=== PATIENT | male | born 1960 | race Caucasian/White ===

== ENCOUNTER 2023-12-14 09:09 | Outpatient (AMB) | payer OTHER, SELFPAY ==
--- NOTE | 2023-12-14 09:12 | MHC.OFFVIS ---
Intake Visit Reasons: FHX:Prostate Ca/Hx Kidney Stones/PSA Intake Note: Patient is present for FHX: PROSTATE Ca/ Hx Kidney Stones/PSA Urology Medication:NONE Antibiotic Allergy:NONE Blood Thinner:NONE Cadastral Engineer Required: No Allergies No Known Allergies Allergy (Verified 12/14/23 09:13) HPI Comments Details: Andrei is a pleasant male. He is a patient of Dr. Alanis. He is seen for the following urologic conditions - nephrolithiasis - elevated PSA - lower urinary tract symptoms Nephrolithiasis Two prior attacks since 2021 Small stones 1-2 mm each time Discussed adequate fluid intake for 1600 cc urine production per day Dietary advice regarding foods to minimize or avoid Addition to vitamin B6 with 1 oz lemon juice daily Elevated PSA PSA variable Family history grandfather of prostate cancer PSA - 09/06 3.5 Lower urinary tract symptoms Progressive weakness of stream Trial finasteride Review of Systems Const Denies chills and Denies fever(s) Card Reports no additional complaints and Denies syncope Resp Denies cough GI Denies abdominal pain and Denies heartburn Reports as per HPI and Denies change in libido Neuro Denies syncope Psych Denies change in libido Endo Denies change in libido Physical Exam Const General: cooperative, healthy appearing, comfortable and no acute distress Orientation/consciousness: patient oriented x3 HEENT Face and sinus: Yes normal facial exam Mouth: moist mucous membranes Neck Neck: Yes normal visual inspection, Yes full ROM and Yes trachea midline Chest Chest palpation & inspection: normal inspection of the chest Resp Effort & Inspection: normal respiratory effort, able to speak in complete sentences and no respiratory distress GI Inspection: Yes normal to inspection Back/Spine/Pelvis Cervical Spine: normal cervical lordosis Thoracic/Lumbar Spine: thoracic and lumbar spine normal to inspection Skin General skin exam: no rashes or lesions noted Neuro General: patient oriented x3, gait normal, tone normal and moves all extremities Extrem General: Yes normal to inspection and Yes capillary refill normal Results AMB Urinalysis, Automated UA Leukoctes 0 Hilda/uL Last Edit by MIGUEL Canas on 12/14/23 09:23 UA Nitrite Negative Last Edit by MIGUEL Canas on 12/14/23 09:23 UA Urobilinogen 0.2 mg/dL Last Edit by MIGUEL Canas on 12/14/23 09:23 UA Protein 0 mg/dL Last Edit by MIGUEL Canas on 12/14/23 09:23 UA pH 6.0 Last Edit by MIGUEL Canas on 12/14/23 09:23 UA Blood 10 Gato/uL Last Edit by MIGUEL Canas on 12/14/23 09:23 UA Specific [place] 1.015 Last Edit by MIGUEL Canas on 12/14/23 09:23 UA Ketone Negative Last Edit by MIGUEL Canas on 12/14/23 09:23 UA Bilirubin 0 mg/dL Last Edit by MIGUEL Canas on 12/14/23 09:23 UA Glucose 0 mg/dL Last Edit by MIGUEL Canas on 12/14/23 09:23 Results Reviewed Results Reviewed: Laboratory Last Values Urine pH (Auto) 6.0 12/14/23 09:22 Specific [place] (Auto) 1.015 12/14/23 09:22 Urine Protein (Auto) 0 mg/dL 12/14/23 09:22 Glucose (UA)(Auto) 0 mg/dL 12/14/23 09:22 Urine Ketones (Auto) Negative 12/14/23 09:22 Urine Blood (Auto) 10 Gato/uL 12/14/23 09:22 Urine Nitrite (Auto) Negative 12/14/23 09:22 Urine Bilirubin (Auto) 0 mg/dL 12/14/23 09:22 Urine Urobilinogen (Auto) 0.2 mg/dL 12/14/23 09:22 Leukocyte Esterase (Auto) 0 Hilda/uL 12/14/23 09:22 Assessment & Plan Assessment & Plan (1) Nephrolithiasis: Code(s): N20.0 - Calculus of kidney Category: Medical (2) Elevated PSA: Code(s): R97.20 - Elevated prostate specific antigen [PSA] Category: Medical (3) Lower urinary tract symptoms due to benign prostatic hyperplasia: Code(s): N40.1 - Benign prostatic hyperplasia with lower urinary tract symptoms Category: Medical Plan See above Orders: Orders AMB Urinalysis Automated Today Z13.9 - Encounter for screening, unspecified PSA,Total (Free>4and<10) 6 Months R97.20 - Elevated prostate specific antigen [PSA] Medications: New pyridoxine (vitamin B6) 50 mg PO DAILY 90 days 90 tabs 1RF N20.0 - Calculus of kidney finasteride 5 mg PO DAILY 90 days 90 tabs 1RF N13.8 - Other obstructive and reflux uropathy, N40.1 - Benign prostatic hyperplasia with lower urinary tract symptoms, R33.9 - Retention of urine, unspecified Patient Instructions: Imaging studies, laboratory and physical exam results were discussed and reviewed in detail. No major barriers to patient understanding were identified. An opportunity to ask questions regarding the treatment plan was provided. All questions were answered. The patient expressed understanding and agreement with the above treatment plan. The patient is aware they should contact our office by phone for worsening of their current condition or the appearance of new urologic symptoms. Compliance is encouraged with any medications and followup testing that is ordered. It is a privilege to participate in the urologic care of your patient. If you have any questions or concerns regarding treatment for the above conditions, or other urologic issues, please do not hesitate to contact me. The office telephone contact is [phone]. This note is constructed using voice recognition software. While every effort has been made to ensure accuracy plant custodian errors may have been included. Yours sincerely, Dr Aly De La Torre MD, LUCINDA [facility] - Urology Providers of Expert, Compassionate Care for the Genitourinary System Coding Level of Care Code New Pt Level 4 (73856) Diagnoses Nephrolithiasis N20.0 Elevated PSA R97.20 Lower urinary tract symptoms due to benign prostatic hyperplasia N40.1
== END 2023-12-14 09:46 | disposition home or self-care (01) ==
LOC: HO.HUSH 09:09
PROVIDERS: PCP Internal Medicine; Visit Provider Urology
DX: N20.0 Calculus of kidney (principal); R97.20 Elevated prostate specific antigen [PSA]; N40.1 Benign prostatic hyperplasia with lower urinary tract symptoms; Z13.9 Encounter for screening, unspecified
CPT/HCPCS: 99204

== ENCOUNTER → 2023-12-14 09:09 | Outpatient (BNVA) | payer OTHER, SELFPAY | PROVIDERS: PCP Internal Medicine; Visit Provider Urology | DX: N20.0 Calculus of kidney (principal); R97.20 Elevated prostate specific antigen [PSA]; N40.1 Benign prostatic hyperplasia with lower urinary tract symptoms; N13.8 Other obstructive and reflux uropathy; R33.8 Other retention of urine | CPT/HCPCS: 81003 ==

== ENCOUNTER 2024-06-12 08:25 | Outpatient (AMB) | payer OTHER, SELFPAY ==
--- NOTE | 2024-06-12 08:25 | A.OFFVIS_ITS ---
Intake Visit Reasons: 6m/PSA Intake Note: Patient is present for 6M/PSA Urology Medication:VITAMIN B6 Antibiotic Allergy:NONE Blood Thinner:NONE Special Education Kindergarten Teacher Required: No Allergies No Known Allergies Allergy (Verified 06/12/24 08:27) HPI Comments Details: Andrei is a pleasant male. He is a patient of Dr. Alanis. He is seen for the following urologic conditions - nephrolithiasis - elevated PSA - lower urinary tract symptoms Telemedicine Evaluation 15 min Consultation [employer] Kaylene Video Six-month Follow-up from finasteride trial Ceased due to sexual side effects 6m f/u - renal US Discussed recent imaging results and previous imaging results. It appeared to be some confusion on imaging regarding renal cysts being on the left or right side. Nephrolithiasis Two prior attacks since 2021 Small stones 1-2 mm each time Discussed adequate fluid intake for 1600 cc urine production per day Dietary advice regarding foods to minimize or avoid Addition to vitamin B6 with 1 oz lemon juice daily Imaging - 2017 prior imaging left renal cyst 1cm - 2024 CT right renal pole cyst Elevated PSA PSA variable Family history grandfather of prostate cancer PSA - 09/06 3.5, 06/08 3.4 Lower urinary tract symptoms Progressive weakness of stream Trial finasteride - caused sexual dysfunction Review of Systems Const All systems reviewed & are unremarkable except as noted in HPI and below Reports no additional complaints Resp Reports no additional complaints GI Reports no additional complaints Reports as per HPI Musc Reports no additional complaints Physical Exam Telemedicine evaluation Appropriate responses Regular breathing rate and rhythm HEENT Head: Yes normal to inspection Ears: hearing grossly normal bilaterally Eyes General: appearance normal, both eyes and all related structures Neck Neck: Yes normal visual inspection Chest Chest palpation & inspection: normal inspection of the chest Resp Effort & Inspection: normal respiratory effort and able to speak in complete sentences Telehealth Telehealth Telehealth Platform: [employer] Location of provider rendering services: practice address Location of patient: address on file Patient Identification confirmed using: Name, : Yes Telehealth method: video Patient verbally consented to treatment: Yes Patient verbally consented to billing insurance company: Yes Patient informed of any privacy concerns related to visit: Yes Minutes spent on Phone/Video with Pt.: 15 Assessment & Plan Assessment & Plan (1) Elevated PSA: Code(s): R97.20 - Elevated prostate specific antigen [PSA] Category: Medical (2) Nephrolithiasis: Code(s): N20.0 - Calculus of kidney Category: Medical (3) Lower urinary tract symptoms due to benign prostatic hyperplasia: Code(s): N40.1 - Benign prostatic hyperplasia with lower urinary tract symptoms Category: Medical Plan Six-month follow-up renal ultrasound Orders: Orders US renal BI 6 Months N20.0 - Calculus of kidney Patient Instructions: This note is constructed using voice recognition software. While every effort has been made to ensure accuracy event marketing representative errors may have been included. Imaging studies, laboratory and physical exam results were discussed and reviewed in detail. No major barriers to patient understanding were identified. An opportunity to ask questions regarding the treatment plan was provided. All questions were answered. The patient expressed understanding and agreement with the above treatment plan. The patient is aware they should contact our office by phone for worsening of their current condition or the appearance of new urologic symptoms. Compliance is encouraged with any medications and followup testing that is ordered. It is a privilege to participate in the urologic care of your patient. If you have any questions or concerns regarding treatment for the above conditions, or other urologic issues, please do not hesitate to contact me. The office telephone contact is [phone]. Sincerely, Dr Aly De La Torre MD, LUCNIDA [facility] - Urology Compassionate Specialist Care for the Genitourinary System Coding Level of Care Code Tele Est Pt Level 3 (85100) Complex EM visit Add On G2211 Diagnoses Elevated PSA R97.20 Nephrolithiasis N20.0 Lower urinary tract symptoms due to benign prostatic hyperplasia N40.1
--- OUTSIDE RECORDS SUMMARY | 2024-06-12 08:40 | XMS_ITS | Clinical Summary ---
Author Organization [facility] Address [address] [place] [address] Care Team Providers Care Automobile And Property Underwriter Name Role Phone Pcp, No Primary Care Provider Unavailabl e Social History Tobacco Use Types Packs/Day Years Used Date Smoking Tobacco: Never Assessed Sex and Gender Information Value Date Recorded Sex Assigned at Not on file Legal Sex Male 6:23 PM EST Gender Identity Not on file Sexual Orientation Not on file Plan of Treatment Health Maintenance Due Date Last Done Comments Hepatitis C Virus Screening 1959 HIV Screening 1972 DTaP/Tdap/Td Vaccines (1 - Tdap) 1978 Pneumococcal Vaccines 50+ (1 of 1 - PCV) 2009 Zoster (Shingles) Vaccine (1 of 2) 2009 COVID-19 Vaccine ( - 2023-2 5 season) 2023 RSV Vaccine 60 years and old er and Patients (1 - 1-dose 75+ series) 2034 Hepatitis B Vaccines Aged Out No long er eligible based on patient's age to complete this topic Insurance TARI OJEDA MEDICARE Care Teams Automobile And Property Underwriter Relationship Specialty Start Date End Date Pcp, No [address] [place] [address] PCP - General 01/18/19
--- OUTSIDE RECORDS SUMMARY | 2024-06-12 08:40 | XMS_ITS | Clinical Summary ---
Author Organization [facility] Address [address] [place] [address] Care Team Providers Care Shingle Bolt Cutter Name Role Phone Rich Costa MD Primary Care Provider [phone] Rich Costa MD Unavailable [phone] Immunizations Name Administration Dates Next Due Influenza,split(incl.purified surface antigen) 1 Td (adult), adsorbed 2005 Social History Tobacco Use Types Packs/Day Years Used Date Smoking Tobacco: Never Assessed Sex and Gender Information Value Date Recorded Sex Assigned at Not on file Legal Sex Male 5:52 PM EDT Gender Identity Not on file Sexual Orientation Not on file Plan of Treatment Health Maintenance Due Date Last Done Comments Hepatitis C Screening 1960 DTaP/Tdap/Td (1 - Tdap) 03/10/2005 2005 Pneumococcal 50+ years (1 of 1 - PCV) 2009 Zoster (Shingrix) (1 of 2) 2009 COVID-19 Vaccine ( - 2023-2 5 season) 2023 Influenza (#1) 2023 12/10/2008 RSV (1 - 1-dose 75+ series) 2034 Abdominal Aorta Imaging Discontinued HPV Vaccine Aged Out No longer eligi ble based on patient's age to complete this topic Hep A Aged Out No longer eligi ble based on patient's age to complete this topic Hep B Aged Out No longer eligi ble based on patient's age to complete this topic Hib Aged Out No longer eligi ble based on patient's age to complete this topic Meningococcal ACWY Aged Out No longer eligible based on patient's age to complete this topic Zoster (Zostavax) Discontinued Care Teams Shingle Bolt Cutter Relationship Specialty Start Date End Date Rich Costa MD [address] [place] [address] PCP - General 09/20/22 Rich Costa MD [address] [place] [address] PCP - Backup PCP Internal Medicine 03/17/23
== END 2024-06-12 09:32 | disposition home or self-care (01) ==
LOC: HO.HUSH 08:25
PROVIDERS: PCP Internal Medicine; Visit Provider Urology
DX: R97.20 Elevated prostate specific antigen [PSA] (principal); N20.0 Calculus of kidney; N40.1 Benign prostatic hyperplasia with lower urinary tract symptoms
CPT/HCPCS: 99213

== ENCOUNTER 2024-12-12 09:22 | Outpatient (AMB) | payer OTHER, SELFPAY ==
--- NOTE | 2024-12-12 10:12 | MHC.OFFVIS ---
Intake Visit Reasons: 6m/CT done 10/04/24 per simon valdovinos Intake Note: Patient is Present for Follow Up Urology Medication: Vitamin B6 Antibiotic Allergies: None Blood Thinners: None Development Technical Lead Required: No Accompanied by: Self / Same As Patient Allergies No Known Allergies Allergy (Verified 12/12/24 10:16) HPI Comments Details: Andrei is a pleasant male. He is a patient of Dr. Alanis. He is seen for the following urologic conditions - nephrolithiasis - elevated PSA - lower urinary tract symptoms Six-month follow-up Repeat CT scans have been done for lung lesions Abdomen shows 2 cm cyst on kidneys but they are benign 12 month follow-up repeat renal imaging for stones Remain on B6 and lemon with water Nephrolithiasis Two prior attacks since 2021 Small stones 1-2 mm each time Discussed adequate fluid intake for 1600 cc urine production per day Dietary advice regarding foods to minimize or avoid Addition to vitamin B6 with 1 oz lemon juice daily Imaging - 2017 prior imaging left renal cyst 1cm - 2024 CT right renal pole cyst - simple cyst no need for follow-up investigation Elevated PSA PSA variable Family history grandfather of prostate cancer PSA - 09/06 3.5, 06/08 3.4 Lower urinary tract symptoms Progressive weakness of stream Trial finasteride - caused sexual dysfunction Review of Systems Const Denies chills and Denies fever(s) Card Reports no additional complaints and Denies syncope Resp Denies cough GI Denies abdominal pain and Denies heartburn Reports as per HPI and Denies change in libido Neuro Denies syncope Psych Denies change in libido Endo Denies change in libido Physical Exam Const General: cooperative, healthy appearing, comfortable and no acute distress Orientation/consciousness: patient oriented x3 HEENT Face and sinus: Yes normal facial exam Mouth: moist mucous membranes Neck Neck: Yes normal visual inspection, Yes full ROM and Yes trachea midline Chest Chest palpation & inspection: normal inspection of the chest Resp Effort & Inspection: normal respiratory effort, able to speak in complete sentences and no respiratory distress GI Inspection: Yes normal to inspection Back/Spine/Pelvis Cervical Spine: normal cervical lordosis Thoracic/Lumbar Spine: thoracic and lumbar spine normal to inspection Skin General skin exam: no rashes or lesions noted Neuro General: patient oriented x3, gait normal, tone normal and moves all extremities Extrem General: Yes normal to inspection and Yes capillary refill normal Results AMB Urinalysis, Automated UA Leukoctes 0 Hilda/uL Last Edit by Whit Quinteros, RMA on 12/12/24 10:20 UA Nitrite Negative Last Edit by Whit Quinteros, RMA on 12/12/24 10:20 UA Urobilinogen 0.2 mg/dL Last Edit by Whit Quinteros, RMA on 12/12/24 10:20 UA Protein 15 mg/dL Last Edit by Whit Quinteros, RMA on 12/12/24 10:20 UA pH 6.0 Last Edit by Whit Quinteros, RMA on 12/12/24 10:20 UA Blood 10 Gato/uL Last Edit by Whit Quinteros, RMA on 12/12/24 10:20 UA Specific [place] 1.020 Last Edit by Whit Quinteros, RMA on 12/12/24 10:20 UA Ketone Negative Last Edit by Whit Quinteros, RMA on 12/12/24 10:20 UA Bilirubin 0 mg/dL Last Edit by Whit Quinteros, RMA on 12/12/24 10:20 UA Glucose 0 mg/dL Last Edit by Whit Quinteros, RMA on 12/12/24 10:20 Results Reviewed Results Reviewed: Laboratory Last Values Urine pH (Auto) 6.0 12/12/24 10:20 Specific [place] (Auto) 1.020 12/12/24 10:20 Urine Protein (Auto) 15 mg/dL 12/12/24 10:20 Glucose (UA)(Auto) 0 mg/dL 12/12/24 10:20 Urine Ketones (Auto) Negative 12/12/24 10:20 Urine Blood (Auto) 10 Gato/uL 12/12/24 10:20 Urine Nitrite (Auto) Negative 12/12/24 10:20 Urine Bilirubin (Auto) 0 mg/dL 12/12/24 10:20 Urine Urobilinogen (Auto) 0.2 mg/dL 12/12/24 10:20 Leukocyte Esterase (Auto) 0 Hilda/uL 12/12/24 10:20 Assessment & Plan Assessment & Plan (1) Nephrolithiasis: Code(s): N20.0 - Calculus of kidney Category: Medical (2) Lower urinary tract symptoms due to benign prostatic hyperplasia: Code(s): N40.1 - Benign prostatic hyperplasia with lower urinary tract symptoms Category: Medical Plan Twelve month follow-up renal altered Orders: Orders US renal BI 12 Months N20.0 - Calculus of kidney AMB Urinalysis Automated Today Z13.9 - Encounter for screening, unspecified Patient Instructions: This note is constructed using voice recognition software. While every effort has been made to ensure accuracy furs salesperson errors may have been included. Imaging studies, laboratory and physical exam results were discussed and reviewed in detail. No major barriers to patient understanding were identified. An opportunity to ask questions regarding the treatment plan was provided. All questions were answered. The patient expressed understanding and agreement with the above treatment plan. The patient is aware they should contact our office by phone for worsening of their current condition or the appearance of new urologic symptoms. Compliance is encouraged with any medications and followup testing that is ordered. It is a privilege to participate in the urologic care of your patient. If you have any questions or concerns regarding treatment for the above conditions, or other urologic issues, please do not hesitate to contact me. The office telephone contact is [phone]. Sincerely, Dr Aly De La Torre MD, LUCINDA [facility] - Urology Compassionate Specialist Care for the Genitourinary System Coding Level of Care Code Est Pt Level 3 (65092) Complex EM visit Add On G2211 Diagnoses Nephrolithiasis N20.0 Lower urinary tract symptoms due to benign prostatic hyperplasia N40.1
--- OUTSIDE RECORDS SUMMARY | 2024-12-12 10:48 | XMS_ITS | Encounter Summary ---
Author Organization [facility] Address [address] [place] [address] Drive [address] [place] [phone] Phone Care Team Providers Care Labeling Specialist Name Role Phone Yong Alanis MD Primary Care Provider [phone] Maddie Alvarez MD, MS Unavailable Silvia Sears MD, MPH Unavailable [phone] Kristine Nair MD Unavailable [phone] Kristine Nair MD Unavailable [phone] Ortiz Cai MD Unavailable [phone] Ortiz Cai MD Unavailable [phone] Encounter Details Date Type Department Care Team (Late st Contact Info) Description 07/23/2016 Procedure Pass [facility] [address] [place] [address] Social History Tobacco Use Types Packs/Day Years Used Date Smoking Tobacco: Never Assessed Sex and Gender Information Value Date Recorded Sex Assigned at Not on file Legal Sex Male 7:47 AM EDT Gender Identity Not on file Sexual Orientation Not on file documented as of this encounter Plan of Treatment Not on file documented as of this encounter Visit Diagnoses Not on filedocumented in this encounter Care Teams Labeling Specialist Relationship Specialty Start Date End Date Yong Alanis MD [address] , [facility] [address] [place] [address] PCP - General Internal Medicine 06/24/16 Maddie Alvarez MD, MS [address] [place] [id number] [email or web address] Surgical Oncology 07/13/16 Silvia Sears MD, MPH [address] [place] [phone] [email or web address] 07/13/16 Kristine Nair MD [address] [place] [phone] [email or web address] Primary Oncologist Oncology 07/13/16 Kristine Nair MD [address] [place] [phone] [email or web address] 08/03/16 08/03/16 Ortiz Cai MD [address] [place] [phone] Rn Clinical Research Urology 09/25/18 Ortiz Cai MD [address] [place] [phone] Urology 11/08/18 documented as of this encounter Additional Source Comments The information contained in this document represents components of the legal health record. It is not the complete legal health record.[facility]
--- OUTSIDE RECORDS SUMMARY | 2024-12-12 10:48 | XMS_ITS | Encounter Summary ---
Author Organization [facility] Address [address] [place] [address] Drive [address] [place] [phone] Phone Care Team Providers Care Allergist/Pediatric Pulmonologist Name Role Phone Yong Alanis MD Primary Care Provider [phone] Maddie Alvarez MD, MS Unavailable Silvia Sears MD, MPH Unavailable [phone] Kristine Nair MD Unavailable [phone] Kristine Nair MD Unavailable [phone] Ortiz Cai MD Unavailable [phone] Ortiz Cai MD Unavailable [phone] Encounter Details Date Type Department Care Team (Late st Contact Info) Description 07/23/2016 Procedure Pass [facility] [address] [place] [address] Social History Tobacco Use Types Packs/Day Years [...] on filedocumented in this encounter Care Teams Allergist/Pediatric Pulmonologist Relationship Specialty Start Date End Date Yong Alanis MD [address] , [facility] [address] [place] [address] PCP - General Internal Medicine 06/24/16 Maddie Alvarez MD, MS [address] [place] [phone] [email or web address] 07/13/16 Silvia Sears MD, MPH [address] [place] [phone] [email or web address] 07/13/16 Kristine Nair MD [address] [place] [phone] [email or web address] Primary Oncologist Oncology 07/13/16 Kristine Nair MD [address] [place] [phone] [email or web address] 08/03/16 08/03/16 Ortiz Cai MD [address] [place] [phone] Union Contract Representative Urology 09/25/18 Ortiz Cai MD [address] [place] [phone] Urology 11/08/18 documented as of this encounter Additional Source Comments The information contained in this document represents components of the legal health record. It is not the complete legal health record.[facility]
--- OUTSIDE RECORDS SUMMARY | 2024-12-12 10:48 | XMS_ITS | Encounter Summary ---
Author Organization [facility] Address [address] [place] [address] [place] [address] Phone Care Team Providers Care Embroidery Machine Operator Name Role Phone Yong Alanis MD Primary Care Provider [phone] Maddie Alvarez MD, MS Unavailable Silvia Sears MD, MPH Unavailable +- [phone] Kristine Nair MD Unavailable [phone] Ortiz Cai MD Unavailable [phone] Ortiz Cai MD Unavailable [phone] Encounter Details Date Type Department Care Team (Late st Contact Info) Description 09/25/2018 Procedure Pass Analilia Lank Imaging Department, [facility] [place], MRI [address] [address] Social History Tobacco Use Types Packs/Day Years Used Date Smoking Tobacco: Former Cigarettes 1 25 0 07/15/1990 - 07/16/2015 Smokeless Tobacco: Never Alcohol Use Standard Drinks/Week Comments Not Currently 0 (1 standard drink = 0.6 oz pur e alcohol) Sex and Gender Information Value Date Recorded Sex Assigned at Not on file Legal Sex Male 7:47 AM EDT Gender Identity Not on file Sexual Orientation Not on file documented as of this encounter Functional Status * Patient is deaf or has serious difficulty with hearing Answer Date of Assessment Author No 08/05/2016 10:21 AM EDT Padma Price PA * Patient is blind or has serious difficulty with seeing, even when wearing glasses Answer Date of Assessment Author No 08/05/2016 10:21 AM Padma Montana PA * Patient has serious difficulty walking or climbing stairs (5yr old or older) Answer Date of Assessment Author No 08/05/2016 10:21 AM Padma Montana PA * Patient has serious difficulty dressing or bathing (5yr old or older) Answer Date of Assessment Author No 08/05/2016 10:21 AM Padma Montana PA * Patient has serious difficulty doing errands alone such as visiting a doctor???s office or shopping, due to physical, mental, or emotional condition (15 years old or older) Answer Date of Assessment Author No 08/05/2016 10:21 AM Padma Montana PA documented as of this encounter Mental Status * Patient has serious difficulty concentrating, remembering, or making decisions due to physical, mental, or emotional condition Answer Entry Date Author No 08/05/2016 10:21 AM Padma Montana PA documented in this encounter Plan of Treatment Not on file documented as of this encounter Visit Diagnoses Not on filedocumented in this encounter Care Teams Embroidery Machine Operator Relationship Specialty Start Date End Date Yong Alanis MD [address] [place] [address] 1 [place] [address] PCP - General Internal Medicine 06/24/16 Maddie Alvarez MD, MS [address] [place] [address] [email or web address] Surgical Oncology 07/13/16 Silvia Sears MD, MPH [address] [place] [address] [email or web address] Radiation Oncology 07/13/16 Kristine Nair MD [address] [place] [address] [email or web address] Primary Oncologist Oncology 07/13/16 Ortiz Cai MD [address] [place] [address] Millinery Designer Urology 09/25/18 Ortiz Cai MD [address] [place] [address] Urology 11/08/18 documented as of this encounter Additional Source Comments The information contained in this document represents components of the legal health record. It is not the complete legal health record.[facility]
--- OUTSIDE RECORDS SUMMARY | 2024-12-12 10:48 | XMS_ITS | Encounter Summary ---
Author Organization [facility] Address [address] [place] [address] [place] [address] Phone Care Team Providers Care Character Actor Name Role Phone Yong Alanis MD Primary Care Provider [phone] Maddie Alvarez MD, MS Unavailable Silvia Sears MD, MPH Unavailable +- [phone] Kristine Nair MD Unavailable [phone] Ortiz Cai MD Unavailable [phone] Ortiz Cai MD Unavailable [phone] Encounter Details Date Type Department Care Team (Late st Contact Info) Description 09/01/2019 Procedure Pass Analilia Lank Imaging Department, [facility] [place], [place] 450 [facility], Floor L1 [place] [address] Social History Tobacco Use Types Packs/Day Years [...] on filedocumented in this encounter Care Teams Character Actor Relationship Specialty Start Date End Date Yong Alanis MD [address] [place] [address] 1 [place] [address] PCP - General Internal Medicine 06/24/16 Maddie Alvarez MD, MS [address] [place] [address] [email or web address] Surgical Oncology 07/13/16 Silvia Sears MD, MPH [address] [place] [address] Eduardo@[facility] Radiation Oncology 07/13/16 Kristine Nair MD [address] [place] [address] [email or web address] Primary Oncologist Oncology 07/13/16 Ortiz Cai MD [address] [place] [address] Molded Goods Operator Urology 09/25/18 Ortiz Cai MD [address] [place] [address] Urology 11/08/18 documented as of this encounter Additional Source Comments The information contained in this document represents components of the legal health record. It is not the complete legal health record.[facility]
--- OUTSIDE RECORDS SUMMARY | 2024-12-12 10:48 | XMS_ITS | Encounter Summary ---
Author Organization [facility] Address [address] [place] [address] [address] [place] [address] Phone Care Team Providers Care Student Services Coordinator Name Role Phone Yong Alanis MD Primary Care Provider [phone] Maddie Alvarez MD, MS Unavailable Silvia Sears MD, MPH Unavailable +- [phone] Kristine Nair MD Unavailable [phone] Kristine Nair MD Unavailable [phone] Ortiz Cai MD Unavailable [phone] Ortiz Cai MD Unavailable [phone] Encounter Details Date Type Department Care Team (Late st Contact Info) Description 07/23/2016 Procedure Pass [facility] 75 [place] [address] Social History Tobacco Use Types Packs/Day Years [...] on filedocumented in this encounter Care Teams Student Services Coordinator Relationship Specialty Start Date End Date Yong Alanis MD [address] , [facility] [address] [place] [address] PCP - General Internal Medicine 06/24/16 Maddie Alvarez MD, MS [address] [place] [address] [email or web address] Surgical Oncology 07/13/16 Silvia Sears MD, MPH [address] [place] [address] Eduardo@[facility] Radiation Oncology 07/13/16 Kristine Nair MD [address] [place] [address] [email or web address] Primary Oncologist Oncology 07/13/16 Kristine Nair MD [address] [place] [address] [email or web address] Oncology 08/03/16 08/03/16 Ortiz Cai MD [address] [place] [address] Nuclear Weapons Custodian Urology 09/25/18 Ortiz Cai MD [address] [place] [address] Urology 11/08/18 documented as of this encounter Additional Source Comments The information contained in this document represents components of the legal health record. It is not the complete legal health record.[facility]
--- OUTSIDE RECORDS SUMMARY | 2024-12-12 10:48 | XMS_ITS | Encounter Summary ---
Author Organization [facility] Address [address] [place] [address] [place] [address] Phone Care Team Providers Care Bankruptcy Attorney Name Role Phone Yong Alanis MD Primary Care Provider [phone] Maddie Alvarez MD, MS Unavailable Silvia Sears MD, MPH Unavailable +- [phone] Kristine Nair MD Unavailable [phone] Ortiz Cai MD Unavailable [phone] Ortiz Cai MD Unavailable [phone] Encounter Details Date Type Department Care Team (Late st Contact Info) Description 08/05/2016 Procedure Pass [facility] Periop [address] [place] [address] Social History Tobacco Use Types Packs/Day Years Used Date Smoking Tobacco: Former Cigarettes 1 25 0 07/15/1990 - 07/16/2015 Smokeless Tobacco: Never Alcohol Use Standard Drinks/Week Comments Yes 4 (1 standard drink = 0.6 oz pur e alcohol) couple beers per week Sex and Gender Information Value Date Recorded [...] on filedocumented in this encounter Care Teams Bankruptcy Attorney Relationship Specialty Start Date End Date Yong Alanis MD [address] [place] [address] PCP - General Internal Medicine 06/24/16 Maddie Alvarez MD, MS [address] [place] [address] ANGELA@[facility] Surgical Oncology 07/13/16 Silvia Sears MD, MPH [address] [place] [address] [email or web address] Radiation Oncology 07/13/16 Kristine Nair MD [address] [place] [address] [email or web address] Primary Oncologist Oncology 07/13/16 Ortiz Cai MD [address] [place] [address] Orthophotography Technician Urology 09/25/18 Ortiz Cai MD [address] [place] [address] Urology 11/08/18 documented as of this encounter Additional Source Comments The information contained in this document represents components of the legal health record. It is not the complete legal health record.[facility]
--- OUTSIDE RECORDS SUMMARY | 2024-12-12 10:48 | XMS_ITS | Encounter Summary ---
Author Organization [facility] Address [address] [place] [address] [place] [address] Phone Care Team Providers Care Hand Loom Weaver Name Role Phone Yong Alanis MD Primary Care Provider [phone] Maddie Alvarez MD, MS Unavailable Silvia Sears MD, MPH Unavailable +- [phone] Kristine Nair MD Unavailable [phone] Ortiz Cai MD Unavailable [phone] Ortiz Cai MD Unavailable [phone] Encounter Details Date Type Department Care Team (Late st Contact Info) Description 09/19/2017 Procedure Pass Analilia Lank Imaging Department, [facility] [place], MRI [address] [address] Social History Tobacco Use Types Packs/Day Years [...] on filedocumented in this encounter Care Teams Hand Loom Weaver Relationship Specialty Start Date End Date Yong Alanis MD [address] [place] [address] 1 [place] [address] PCP - General Internal Medicine 06/24/16 Maddie Alvarez MD, MS [address] [place] [address] ANGELA@[email or web address] Surgical Oncology 07/13/16 Silvia Sears MD, MPH [address] [place] [address] [email or web address] Radiation Oncology 07/13/16 Kristine Nair MD [address] [place] [address] [email or web address] Primary Oncologist Oncology 07/13/16 Ortiz Cai MD [address] [place] [address] Director Labor Standards Urology 09/25/18 Ortiz Cai MD [address] [place] [address] Urology 11/08/18 documented as of this encounter Additional Source Comments The information contained in this document represents components of the legal health record. It is not the complete legal health record.[facility]
--- OUTSIDE RECORDS SUMMARY | 2024-12-12 10:49 | XMS_ITS | Encounter Summary ---
Author Organization [facility] Address [address] [place] [address] [place] [address] Phone Care Team Providers Care Lead Software Test Engineer Name Role Phone Yong Alanis MD Primary Care Provider [phone] Maddie Alvarez MD, MS Unavailable Silvia Sears MD, MPH Unavailable +- [phone] Kristine Nair MD Unavailable [phone] Ortiz Cai MD Unavailable [phone] Ortiz Cai MD Unavailable [phone] Encounter Details Date Type Department Care Team (Late st Contact Info) Description 09/19/2017 Procedure Pass Analilia Lank Imaging Department, [facility] [place], [place] 450 [facility], Floor L1 [place] [address] Social History Tobacco Use Types Packs/Day Years [...] on filedocumented in this encounter Care Teams Lead Software Test Engineer Relationship Specialty Start Date End Date Yong Alanis MD [address] [place] [address] 1 [place] [address] PCP - General Internal Medicine 06/24/16 Maddie Alvarez MD, MS [address] [place] [address] ANGELA@[email or web address] Surgical Oncology 07/13/16 Silvia Sears MD, MPH [address] [place] [address] Eduardo@[facility] Radiation Oncology 07/13/16 Kristine Nair MD [address] [place] [address] [email or web address] Primary Oncologist Oncology 07/13/16 Ortiz Cai MD [address] [place] [address] Vibrator Equipment Tester Urology 09/25/18 Ortiz Cai MD [address] [place] [address] Urology 11/08/18 documented as of this encounter Additional Source Comments The information contained in this document represents components of the legal health record. It is not the complete legal health record.[facility]
--- OUTSIDE RECORDS SUMMARY | 2024-12-12 10:51 | XMS_ITS | Clinical Summary ---
Author Organization [facility] Address [address] [place] [address] Care Team Providers Care Director Name Role Phone Rich Costa MD Primary Care Provider [phone] Rich Costa MD Unavailable [phone] Immunizations Immunization Administration Dates Next Due Influenza,split(incl.purified surface antigen) [...] of 2) 2009 COVID-19 Vaccine ( - 2024-2 6 season) 2024 Influenza (#1) 2024 12/10/2008 RSV (1 - 1-dose 75+ series) 2034 Abdominal Aorta Imaging Discontinued HPV Vaccine (No Doses Required) Completed Hep A Aged Out No longer eligi [...] this topic Zoster (Zostavax) Discontinued Care Teams Director Relationship Specialty Start Date End Date Rich Costa MD [address] [place] [address] PCP - General 09/20/22 Rich Costa MD [address] [place] [address] PCP - Backup PCP Internal Medicine 03/17/23
--- OUTSIDE RECORDS SUMMARY | 2024-12-12 10:51 | XMS_ITS | Encounter Summary ---
Author Organization [facility] Address [address] [place] [address] [address] [place] [address] Phone Care Team Providers Care Credit Review Officer Name Role Phone Yong Alanis MD Primary Care Provider [phone] Maddie Alvarez MD, MS Unavailable Silvia Sears MD, MPH Unavailable [phone]- [phone] Kristine Nair MD Unavailable [phone] Ortiz Cai MD Unavailable [phone] Ortiz Cai MD Unavailable [phone] Encounter Details Date Type Department Care Team (Late st Contact Info) Description 03/28/2017 Procedure Pass [facility] 75 [place] [address] Social History Tobacco Use Types Packs/Day Years [...] on filedocumented in this encounter Care Teams Credit Review Officer Relationship Specialty Start Date End Date Yong Alanis MD [address] [place] [address] 1 [place] [address] PCP - General Internal Medicine 06/24/16 Maddie Alvarez MD, MS [address] [place] [address] ANGELA@[facility] Surgical Oncology 07/13/16 Silvia Sears MD, MPH [address] [place] [address] Eduardo@[email or web address] Radiation Oncology 07/13/16 Kristine Nair MD [address] [place] [address] [email or web address] Primary Oncologist Oncology 07/13/16 Ortiz Cai MD [address] [place] [address] Detective Homicide Squad Urology 09/25/18 Ortiz Cai MD [address] [place] [address] Urology 11/08/18 documented as of this encounter Additional Source Comments The information contained in this document represents components of the legal health record. It is not the complete legal health record.[facility]
--- OUTSIDE RECORDS SUMMARY | 2024-12-12 10:51 | XMS_ITS | Encounter Summary ---
Author Organization [facility] Address [address] [place] [address] [place] [address] Phone Care Team Providers Care Glass Mold Repairer Name Role Phone Yong Alanis MD Primary Care Provider [phone] Maddie Alvarez MD, MS Unavailable Silvia Sears MD, MPH Unavailable [phone]- [phone] Kristine Nair MD Unavailable [phone] Ortiz Cai MD Unavailable [phone] Ortiz Cai MD Unavailable [phone] Encounter Details Date Type Department Care Team (Late st Contact Info) Description 03/28/2017 Procedure Pass Analilia Lank Imaging Department, [facility] [place], [place] 450 [facility], Floor L1 [place] [address] Social History Tobacco Use Types Packs/Day Years [...] 10:21 AM Padma Montana PA * Patient is blind or has [...] on filedocumented in this encounter Care Teams Glass Mold Repairer Relationship Specialty Start Date End Date Yong Alanis MD [address] [place] [address] 1 [place] [address] PCP - General Internal Medicine 06/24/16 Maddie Alvarez MD, MS [address] [place] [address] ANGELA@[email or web address] Surgical Oncology 07/13/16 Silvia Sears MD, MPH [address] [place] [address] Eduardo@[facility] Radiation Oncology 07/13/16 Kristine Nair MD [address] [place] [address] [email or web address] Primary Oncologist Oncology 07/13/16 Ortiz Cai MD [address] [place] [address] Gas Collection System Operator Urology 09/25/18 Ortiz Cai MD [address] [place] [address] Urology 11/08/18 documented as of this encounter Additional Source Comments The information contained in this document represents components of the legal health record. It is not the complete legal health record.[facility]
--- OUTSIDE RECORDS SUMMARY | 2024-12-12 10:51 | XMS_ITS | Encounter Summary ---
Author Organization [facility] Address [address] [place] [address] [place] [address] Phone Care Team Providers Care Child Caregiver Name Role Phone Yong Alanis MD Primary Care Provider [phone] Maddie Alvarez MD, MS Unavailable Silvia Sears MD, MPH Unavailable [phone]- [phone] Kristine Nair MD Unavailable [phone] Ortiz Cai MD Unavailable [phone] Ortiz Cai MD Unavailable [phone] Encounter Details Date Type Department Care Team (Late st Contact Info) Description 01/30/2018 Telephone [facility] General & GI Surgery 75 [facility]2-3 [place] [address] Margi Casanova [address] [place] [address] [email or web address] Social History Tobacco Use Types Packs/Day Years [...] on filedocumented in this encounter Care Teams Child Caregiver Relationship Specialty Start Date End Date Yong Alanis MD [address] [place] [address] 1 [place] [address] PCP - General Internal Medicine 06/24/16 Maddie Alvarez MD, MS [address] [place] [address] ANGELA@[email or web address] Surgical Oncology 07/13/16 Silvia Sears MD, MPH [address] [place] [address] Eduardo@[email or web address] Radiation Oncology 07/13/16 Kristine Nair MD [address] [place] [address] [email or web address] Primary Oncologist Oncology 07/13/16 Ortiz Cai MD [address] [place] [address] Scientist Urology 09/25/18 Ortiz Cai MD [address] [place] [address] Urology 11/08/18 documented as of this encounter Additional Source Comments The information contained in this document represents components of the legal health record. It is not the complete legal health record.[facility]
--- OUTSIDE RECORDS SUMMARY | 2024-12-12 10:52 | XMS_ITS | Encounter Summary ---
Author Organization [facility] Address [address] [place] [address] Drive [address] [place] [address] Phone Care Team Providers Care Millwright Helper Name Role Phone Yong Alanis MD Primary Care Provider [phone] Maddie Alvarez MD, MS Unavailable Silvia Sears MD, MPH Unavailable [phone]- [phone] Kristine Nair MD Unavailable [phone] Kristine Nair MD Unavailable [phone] Ortiz Cai MD Unavailable [phone] Ortiz Cai MD Unavailable [phone] Encounter Details Date Type Department Care Team (Late st Contact Info) Description 07/23/2016 Procedure Pass [facility] [address] [place] [address] Social History Tobacco Use Types Packs/Day Years [...] on filedocumented in this encounter Care Teams Millwright Helper Relationship Specialty Start Date End Date Yong Alanis MD [address] , [facility] [address] 1 [place] [address] PCP - General Internal Medicine 06/24/16 Maddie Alvarez MD, MS [address] [place] [address] ANGELA@[email or web address] Surgical Oncology 07/13/16 Silvia Sears MD, MPH [address] [place] [address] Eduardo@[facility] Radiation Oncology 07/13/16 Kristine Nair MD [address] [place] [address] [email or web address] Primary Oncologist Oncology 07/13/16 Kristine Nair MD [address] [place] [address] [email or web address] Oncology 08/03/16 08/03/16 Ortiz Cai MD [address] [place] [address] Rubber Process Hand Urology 09/25/18 Ortiz Cai MD [address] [place] [address] Urology 11/08/18 documented as of this encounter Additional Source Comments The information contained in this document represents components of the legal health record. It is not the complete legal health record.[facility]
--- OUTSIDE RECORDS SUMMARY | 2024-12-12 10:52 | XMS_ITS | Encounter Summary ---
Author Organization [facility] Address [address] [place] [address] [place] [address] Phone Care Team Providers Care Lead Blender Name Role Phone Yong Alanis MD Primary Care Provider [phone] Maddie Alvarez MD, MS Unavailable Silvia Sears MD, MPH Unavailable [phone]- [phone] Kristine Nair MD Unavailable [phone] Ortiz Cai MD Unavailable [phone] Ortiz Cai MD Unavailable [phone] Encounter Details Date Type Department Care Team (Late st Contact Info) Description 08/23/2016 Procedure Pass Analilia Lank Imaging Department, [facility] [place], [place] 450 [facility], Floor [address]1 [place] [address] Social History Tobacco Use Types Packs/Day Years [...] filedocumented in this encounter Care Teams Lead Blender Relationship Specialty Start Date End Date Yong Alanis MD [address] [place] [address] 1 [place] [address] PCP - General Internal Medicine 06/24/16 Maddie Alvarez MD, MS [address] [place] [address] ANGELA@[email or web address] Surgical Oncology 07/13/16 Silvia Sears MD, MPH [address] [place] [address] Eduardo@[facility] Radiation Oncology 07/13/16 Kristine Nair MD [address] [place] [address] [email or web address] Primary Oncologist Oncology 07/13/16 Ortiz Cai MD [address] [place] [address] Oil Well Fishing Tool Technician Urology 09/25/18 Ortiz Cai MD [address] [place] [address] Urology 11/08/18 documented as of this encounter Additional Source Comments The information contained in this document represents components of the legal health record. It is not the complete legal health record.[facility]
--- OUTSIDE RECORDS SUMMARY | 2024-12-12 10:52 | XMS_ITS | Clinical Summary ---
Author Organization [facility] Address [address] [place] [address] Care Team Providers Care Fermenter Helper Name Role Phone Pcp, No Primary Care Provider Unavailabl e Social History Tobacco Use Types Packs/Day Years Used Date Smoking Tobacco: Never Assessed Sex and Gender Information Value Date Recorded Sex Assigned at Not on file Legal Sex Male 6:23 PM EST Gender Identity Not on file Sexual Orientation Not on file Plan of Treatment Health Maintenance Due Date Last Done Comments Advance Care Planning 1960 Hepatitis C Virus Screening 1959 HIV Screening 1972 DTaP/Tdap/Td Vaccines (1 - Tdap) 1978 Pneumococcal Vaccines 50+ (1 of 1 - PCV) 2009 Zoster (Shingles) Vaccine (1 of 2) 2009 COVID-19 Vaccine ( - 2023-2 5 season) 2024 RSV Vaccine 50 years and old er and Patients (1 - 1-dose 75+ series) 2034 Hepatitis B Vaccines Aged Out No long er eligible based on patient's age to complete this topic Insurance [employer] MEDICARE Care Teams Fermenter Helper Relationship Specialty Start Date End Date Pcp, No [address] [place] [address] PCP - General 01/18/19
--- OUTSIDE RECORDS SUMMARY | 2024-12-12 10:52 | XMS_ITS | Encounter Summary ---
Author Organization [facility] Address [address] [place] [address] [place] [phone] Phone Care Team Providers Care Web Site Admin Name Role Phone Yong Alanis MD Primary Care Provider [phone] Maddie Alvarez MD, MS Unavailable Silvia Sears MD, MPH Unavailable [phone] Kristine Nair MD Unavailable [phone] Ortiz Cai MD Unavailable [phone] Ortiz Cai MD Unavailable [phone] Encounter Details Date Type Department Care Team (Late st Contact Info) Description 11/25/2021 Procedure Pass [facility] Imaging Department, [facility] [place], MRI [address] [facility], [address] [place] [address] Social History Tobacco Use Types Packs/Day Years [...] on filedocumented in this encounter Care Teams Web Site Admin Relationship Specialty Start Date End Date Yong Alanis MD [address] [place] [address] 1 [place] [address] PCP - General Internal Medicine 06/24/16 Maddie Alvarez MD, MS [address] [place] [id number] [email or web address] Surgical [email or web address] 07/13/16 Silvia Sears MD, MPH [address] [place] [address] [email or web address] Radiation Oncology 07/13/16 Kristine Nair MD [address] [place] [phone] [email or web address] Primary Oncologist Oncology 07/13/16 Ortiz Cai MD [address] [place] [phone] Spinning And Winding Supervisor Urology 09/25/18 Ortiz Cai MD [address] [place] [phone] Urology 11/08/18 documented as of this encounter Additional Source Comments The information contained in this document represents components of the legal health record. It is not the complete legal health record.[facility]
--- OUTSIDE RECORDS SUMMARY | 2024-12-12 10:52 | XMS_ITS | Encounter Summary ---
Author Organization [facility] Address [address] [place] [address] Drive [address] [place] [phone] Phone Care Team Providers Care Sas Developer Name Role Phone Yong Alanis MD Primary Care Provider [phone] Maddie Alvarez MD, MS Unavailable Silvia Sears MD, MPH Unavailable [phone] Kristine Nair MD Unavailable [phone] Kristine Nair MD Unavailable [phone] Ortiz Cai MD Unavailable [phone] Ortiz Cai MD Unavailable [phone] Encounter Details Date Type Department Care Team (Late st Contact Info) Description 07/23/2016 Procedure Pass [facility] [address] [place] [address] Social History Tobacco Use Types Packs/Day Years [...] on filedocumented in this encounter Care Teams Sas Developer Relationship Specialty Start Date End Date Yong Alanis MD [address] , [facility] [address] [place] [address] PCP - General Internal Medicine 06/24/16 Maddie Alvarez MD, MS [address] [place] [id number] [email or web address] 07/13/16 Silvia Sears MD, MPH [address] [place] [phone] [email or web address] 07/13/16 Kristine Nair MD [address] [place] [phone] [email or web address] Primary Oncologist Oncology 07/13/16 Kristine Nair MD [address] [place] [phone] [email or web address] 08/03/16 08/03/16 Ortiz Cai MD [address] [place] [phone] Sign Board Erector Urology 09/25/18 Ortiz Cai MD [address] [place] [phone] Urology 11/08/18 documented as of this encounter Additional Source Comments The information contained in this document represents components of the legal health record. It is not the complete legal health record.[facility]
== END 2024-12-12 10:45 | disposition home or self-care (01) ==
LOC: HO.HUSH 09:23
PROVIDERS: PCP Internal Medicine; Visit Provider Urology
DX: N20.0 Calculus of kidney (principal); N40.1 Benign prostatic hyperplasia with lower urinary tract symptoms; Z13.9 Encounter for screening, unspecified
CPT/HCPCS: 99213

== ENCOUNTER → 2024-12-12 09:22 | Outpatient (BNVA) | payer OTHER, SELFPAY | PROVIDERS: PCP Internal Medicine; Visit Provider Urology | DX: N40.1 Benign prostatic hyperplasia with lower urinary tract symptoms (principal); N13.8 Other obstructive and reflux uropathy; N20.0 Calculus of kidney; R97.20 Elevated prostate specific antigen [PSA]; Z13.9 Encounter for screening, unspecified; Z80.42 Family history of malignant neoplasm of prostate | CPT/HCPCS: 81003 ==